=== PATIENT | female | born 1995 | race Caucasian/White ===

== ENCOUNTER 2020-07-29 18:09 | Observation (INO) ==
[2020-07-29] MEDS ORDERED: ONDANSETRON INJ 2 MG/ML 2 ML VIAL IV STA (19:52)
[2020-07-29] MEDS ORDERED: MoRPHine SULFATE 4 MG/ML 1 ML CARP\\VIAL IV STA (19:52)
[2020-07-29] MEDS ORDERED: PANTOprazole 40 MG in SYRINGE 0 ML IV ONE (19:52)
[2020-07-29] MEDS ORDERED: SODIUM CHLORIDE 0.9% 1000ML 1,000 ML IV SCH (20:00)
[2020-07-29 20:24] LABS: Basophils # (auto) 0.01 K/uL (0-0.2); Basophils % (auto) 0.1 %; Eosinophils # (auto) 0.06 K/uL (0-0.5); Eosinophils % (auto) 0.5 %; Hematocrit (blood only) 40.6 % (37-47); Hemoglobin 13.4 g/dL (12.0-16.0); Immature Granulocytes # (auto) 0.05 K/uL (0.00-0.02); Immature Granulocytes % (auto) 0.4 %; Lymphocytes # (auto) 3.19 K/uL (1.2-3.4); Mean Corpuscular Hemoglobin 27.7 pg (25-34); Mean Corpuscular Volume 84.1 fL (80-100); Mean Platelet Volume 10.5 fL (7.4-10.4); Monocytes # (auto) 0.84 K/uL (0.11-0.59); Monocytes % (auto) 6.8 %; Neutrophils # (auto) 8.12 K/uL (1.4-6.5); Neutrophils % (auto) 66.2 %; Platelet Count 318 K/uL (130-400); RDW Coefficient of Variation 13.2 % (11.5-14.5); RDW Standard Deviation 40.2 fL (36.4-46.3); Red Blood Count 4.83 M/uL (4.2-5.4); White Blood Count 12.27 K/uL (4.8-10.8)
[2020-07-29 20:40] LABS: Alanine Aminotransferase 28 U/L (12-78); Albumin Level 3.8 gm/dl (3.4-5.0); Aspartate Aminotransferase 16 U/L (15-37); BUN Creatinine Ratio 11.6 (10-20); Blood Urea Nitrogen 9 mg/dl (7-18); Calcium 9.8 mg/dl (8.5-10.1); Carbon Dioxide 26 mmol/L (21-32); Chloride 107 mmol/L (98-107); Creatinine Clr Calc Pharmacy 141.8 ml/min; Est GFR (African American) 121.3; Est GFR (Non-African American) 104.7; Glucose 87 mg/dl (70-99); Lipase 99 U/L (73-393); Potassium 3.6 mmol/L (3.5-5.1); Sodium 138 mmol/L (136-145)
--- NOTE | 2020-07-29 20:40 | CT Scan Report ---
CT OF THE ABDOMEN AND PELVIS WITHOUT CONTRAST CLINICAL HISTORY: epigastric pain after eating COMPARISON STUDY: No previous studies for comparison. TECHNIQUE: Axial images of the abdomen and pelvis were obtained without IV contrast. Images were revi ewed in the axial, sagittal, and coronal planes. Automated exposure control was utilized for the addi dy. A dose lowering technique was utilized adhering to the principles of ALARA. FINDINGS: Lung bases are unremarkable. Evaluation of the abdomen and pelvis is suboptimal on this une nhanced examination. There is a 7 mm calcified gallstone within the gallbladder. This exam is comprom ised by motion artifact. There is indistinctness of the gallbladder wall. This favors mild pericholec ystic infiltration. There may be mild gallbladder wall thickening. No biliary or pancreatic ductal di latation is present. Mild splenomegaly is noted. The liver, adrenal glands, kidneys and pancreas are normal. There is no peripancreatic infiltration. There is no hydronephrosis. No urinary calculi are i dentified. There is no evidence for a bowel obstruction. The appendix is normal. Trace fluid within t he pelvis is probably physiologic. The ovaries are not enlarged. There is no lymphadenopathy. There a re no suspicious osseous lesions. No pneumatosis, free air or portal venous gas is present. IMPRESSION: 1. Cholelithiasis with mild pericholecystic infiltration and possible gallbladder wall thickening. Th shukri findings raise the possibility of acute cholecystitis. A hepatobiliary scan could be obtained as indicated. 2. No urinary calculi or hydronephrosis. 3. No bowel obstruction. Normal appendix. 4. Trace fluid within the pelvis which is likely physiologic. ACT 112: Negative or not required by law. Electronically signed by: Jj Iglesias M.D. 07/29/2020 8:38 PM
[2020-07-29 20:45] LABS: Albumin Globulin Ratio 0.9 (0.9-2); Alkaline Phosphatase 87 U/L (45-117); Bilirubin,Total 0.6 mg/dl (0.2-1); Globulin 4.4 gm/dl (2.5-4.0); Total Protein 8.2 gm/dl (6.4-8.2); Troponin I < 0.015 ng/ml (0-0.045)
--- NOTE | 2020-07-29 20:52 | Ultrasound Report ---
US gallbladder CLINICAL HISTORY: Epigastric pain after eating COMPARISON STUDY: CT of the abdomen and pelvis July 29, 2020 at 8:27 PM. FINDINGS: Liver is sonographically normal. There is no biliary ductal dilatation. Common bile duct me asures 4 mm in caliber. Multiple gallstones are noted within the gallbladder, including an immobile 2 cm stone. The gallbladder wall is thickened, measuring 6 mm in thickness. No sonographic Urrutia sign was reported. Pancreas is obscured by overlying bowel gas. There is no right hydronephrosis. IMPRESSION: 1. Cholelithiasis and gallbladder wall thickening. No sonographic Urrutia sign. Acute cholecystitis ca nnot be excluded. A hepatobiliary scan could be obtained as indicated. 2. No biliary ductal dilatation. ACT 112: Negative or not required by law. Electronically signed by: Jj Iglesias M.D. 07/29/2020 8:51 PM
--- NOTE | 2020-07-29 21:42 | Emergency Department Note ---
History of Present Illness General Chief complaint: Abdominal Pain Stated complaint: PAIN IN ABD VOMITING Time Seen by Provider: 07/29/20 19:33 History of Present Illness Maximum Pain Intensity: 3 This is a 24-year-old female presenting to the emergency department for evaluation of epigastric abdominal pain for the past 9 or 10 hours. The patient states that she has had intermittent epigastric pain after eating for several months. She states that she last ate around 11 AM today, and shortly thereafter began having significant and persistent epigastric abdominal pain. She states i n the past she has vomited and this has relieved her symptoms. This did not help her today. The patient has not had fevers or chills. No distinct chest pain, chest tightness, shortness of breath, or lower abdominal pain. She denies chance of . She does not have a history of abdominal surgery. She will occasionally take Tylenol and Nexium as needed, but does not take any regular prescription medication. She rates her current pain a 3/10 with waves of pain that are much more severe. Home Medications Home Medications Medication Instructions Recorded Confirmed Type acetaminophen [Tylenol Extra 1,000 mg PO DIRECTED PRN 07/29/20 07/29/20 History Strength] esomeprazole magnesium [Nexium] 40 mg PO DAILY PRN 07/29/20 07/29/20 History Allergies Allergy/AdvReac Type Severity Reaction Status Date / Time No Known Allergies Allergy Verified 07/29/20 20:08 Past Med/Surg History Medical History No chronic diseases present Surgical History No significant past surgical history Social History Smoking Status: Never smoker Feels Safe at Home: Yes Review of Systems A total of 10 systems reviewed and were otherwise negative Physical Exam Vital Signs Vital Signs - 24 hr 07/29/20 18:09 07/29/20 20:00 07/29/20 21:22 Temperature 36.6 C Temperature Source Oral Pulse Rate 94 H Pulse Rate [Apical] 105 H 104 H Respiratory Rate 19 18 18 Respiratory Effort / Characteristics Non-Labored Spontaneous Respiratory Depth Normal Respiratory Pattern Regular Blood Pressure 138/93 Blood Pressure [Right Arm] 137/90 128/85 Blood Pressure Mean 108 Blood Pressure Mean [Right Arm] 105 99 Pulse Oximetry 99 98 98 Oxygen Delivery Method Room Air Room Air Room Air Sepsis Recent Fever Within 48 Hours No Sepsis New/Unexplained Change in Mental Status No Sepsis Action Taken by Nursing No Action Required VITALS: Vitals are noted on the nurse's note and reviewed by myself. Vital si gns stable. GENERAL: Well-developed, well-nourished, white female, who is in no acute distress and resting comfortably. Patient is cooperative with the examination. HEAD: Normocephalic atraumatic. NECK: Supple without nuchal rigidity. No lymphadenopathy. No thyromegaly. Cervical spine is nontender. HEART: Regular rate and rhythm without murmurs gallops or rubs. LUNGS: Clear to auscultation bilaterally without wheezes, rales or rhonchi. No retractions or accessory muscle use. ABDOMEN: Positive normal bowel sounds x 4. Soft with positive epigastric and slightly left upper quadrant tenderness on palpation. No rebound or guarding. No lower abdominal tenderness. No CVA tenderness. There is minimal right upper quadrant tenderness on palpation. MUSCULOSKELETAL: No muscle atrophy, erythema, or edema noted. Full range of motion in all extremities. NEURO: Patient was alert and oriented to person place and time. CN II through XII grossly intact. Course Administered Medications Piperacillin Sod/Tazobactam (Sod 3.375 gm/ Dextrose) 115 mls @ 28.75 mls/hr IV Q8H [facility]; Protocol Stop: 08/08/20 22:14 Last Admin: 07/29/20 22:25 Dose: 28.8 mls/hr Documented by: [id number] Discontinued Medications Sodium Chloride (Nss 1000ml) 1,000 mls @ 999 mls/hr IV .Q1H1M CELY Stop: 07/29/20 21:00 Last Infusion: 07/29/20 21:27 Dose: 0 mls/hr Documented by: [id number] Admin: 07/29/20 20:17 Dose: 999 mls/hr Documented by: [id number] Pantoprazole Sodium 40 mg/ (Syringe) 10 mls @ 5 mls/min IV NOW ONE Stop: 07/29/20 19:53 Last Admin: 07/29/20 20:17 Dose: 5 mls/min Documented by: [id number] Morphine Sulfate (Morphine Sulfate 4 Mg/Ml 1 Ml Carp\Vial) 4 mg IV NOW STA Stop: 07/29/20 19:53 Last Admin: 07/29/20 20:17 Dose: 4 mg Documented by: [id number] Ondansetron HCl (Ondansetron Inj 2 Mg/Ml 2 Ml Vial) 4 mg IV NOW STA Stop: 07/29/20 19:53 Last Admin: 07/29/20 20:17 Dose: 4 mg Documented by: [id number] Medical Decision Making Differential Diagnosis Differential diagnosis: Etiologies such as biliary colic, cholecystitis, hepatitis, pancreatitis, cardiac disease, pancreatitis, gastritis, peptic ulcer disease, appendicitis, cystitis, diverticulitis, mesenteric ischemia, inflammatory bowel disease, ileus, bowel obstruction, testicular/adnexal torsion, aortic pathology, shingles, as well as others were considered Laboratory Data Result diagrams: 07/29/20 20:10 07/29/20 20:10 Lab Results 07/29/20 07/29/20 07/29/20 Range/Units 20:10 20:10 20:10 WBC 12.27 H (4.8-10.8) K/uL RBC 4.83 (4.2-5.4) M/uL Hgb 13.4 (12.0-16.0) g/dL Hct 40.6 (37-47) % MCV 84.1 (80-100) fL MCH 27.7 (25-34) pg MCHC 33.0 (32-36) g/dL RDW Std Deviation 40.2 (36.4-46.3) fL RDW Coeff of Mu 13.2 (11.5-14.5) % Plt Count 318 (130-400) K/uL MPV 10.5 H (7.4-10.4) fL Immature Gran % (Auto) 0.4 % Neut % (Auto) 66.2 % Lymph % (Auto) 26.0 % [place] % (Auto) 6.8 % Eos % (Auto) 0.5 % Baso % (Auto) 0.1 % Neut # (Auto) 8.12 H (1.4-6.5) K/uL Lymph # (Auto) 3.19 (1.2-3.4) K/uL [place] # (Auto) 0.84 H (0.11-0.59) K/uL Eos # (Auto) 0.06 (0-0.5) K/uL Baso # (Auto) 0.01 (0-0.2) K/uL Immature Gran # (Auto) 0.05 H (0.00-0.02) K/uL Sodium 138 (136-145) mmol/L Potassium 3.6 (3.5-5.1) mmol/L Chloride 107 (98-107) mmol/L Carbon Dioxide 26 (21-32) mmol/L Anion Gap 5.0 (3-11) BUN 9 (7-18) mg/dl Creatinine 0.80 (0.6-1.2) mg/dl Est Cr Clr Drug Dosing 141.8 ml/min Est GFR ( Amer) 121.3 Est GFR (Non-Af Amer) 104.7 BUN/Creatinine Ratio 11.6 (10-20) Glucose 87 (70-99) mg/dl Calcium 9.8 (8.5-10.1) mg/dl Total Bilirubin 0.6 (0.2-1) mg/dl AST 16 (15-37) U/L ALT 28 (12-78) U/L Alkaline Phosphatase 87 (45-117) U/L Troponin I < 0.015 (0-0.045) ng/ml Total Protein 8.2 (6.4-8.2) gm/dl Albumin 3.8 (3.4-5.0) gm/dl Globulin 4.4 H (2.5-4.0) gm/dl Albumin/Globulin Ratio 0.9 (0.9-2) Lipase 99 (73-393) U/L Urine Color Urine Appearance (Clear) Urine pH (4.5-7.5) Ur Specific [place] (1.000-1.030) Urine Protein (Negative) Urine Glucose (UA) (Negative) Urine Ketones (Negative) Urine Blood (Negative) Urine Nitrite (Negative) Urine Bilirubin (Negative) Urine Urobilinogen (Negative) Ur Leukocyte Esterase (Negative) Urine WBC (Auto) (0-5) /hpf Urine RBC (Auto) (0-4) /hpf U Hyaline Cast (Auto) (0-5) /lpf U Epithel Cells (Auto) (0-5) /lpf Urine Bacteria (Auto) (Negative) POC Ur Test (NEG) Monoscreen Negative (Negative) 10/08/20 10/08/20 Range/Units 21:12 21:12 WBC (4.8-10.8) K/uL RBC (4.2-5.4) M/uL Hgb (12.0-16.0) g/dL Hct (37-47) % MCV (80-100) fL MCH (25-34) pg MCHC (32-36) g/dL RDW Std Deviation (36.4-46.3) fL RDW Coeff of Mu (11.5-14.5) % Plt Count (130-400) K/uL MPV (7.4-10.4) fL Immature Gran % (Auto) % Neut % (Auto) % Lymph % (Auto) % [place] % (Auto) % Eos % (Auto) % Baso % (Auto) % Neut # (Auto) (1.4-6.5) K/uL Lymph # (Auto) (1.2-3.4) K/uL [place] # (Auto) (0.11-0.59) K/uL Eos # (Auto) (0-0.5) K/uL Baso # (Auto) (0-0.2) K/uL Immature Gran # (Auto) (0.00-0.02) K/uL Sodium (136-145) mmol/L Potassium (3.5-5.1) mmol/L Chloride (98-107) mmol/L Carbon Dioxide (21-32) mmol/L Anion Gap (3-11) BUN (7-18) mg/dl Creatinine (0.6-1.2) mg/dl Est Cr Clr Drug Dosing ml/min Est GFR ( Amer) Est GFR (Non-Af Amer) BUN/Creatinine Ratio (10-20) Glucose (70-99) mg/dl Calcium (8.5-10.1) mg/dl Total Bilirubin (0.2-1) mg/dl AST (15-37) U/L ALT (12-78) U/L Alkaline Phosphatase (45-117) U/L Troponin I (0-0.045) ng/ml Total Protein (6.4-8.2) gm/dl Albumin (3.4-5.0) gm/dl Globulin (2.5-4.0) gm/dl Albumin/Globulin Ratio (0.9-2) Lipase (73-393) U/L Urine Color Yellow Urine Appearance Cloudy A (Clear) Urine pH 5.5 (4.5-7.5) Ur Specific [place] 1.007 (1.000-1.030) Urine Protein Negative (Negative) Urine Glucose (UA) Negative (Negative) Urine Ketones 1+ H (Negative) Urine Blood Negative (Negative) Urine Nitrite Negative (Negative) Urine Bilirubin Negative (Negative) Urine Urobilinogen Negative (Negative) Ur Leukocyte Esterase Trace H (Negative) Urine WBC (Auto) 5-10 H (0-5) /hpf Urine RBC (Auto) 0-4 (0-4) /hpf U Hyaline Cast (Auto) 1-5 (0-5) /lpf U Epithel Cells (Auto) >30 H (0-5) /lpf Urine Bacteria (Auto) 2+ H (Negative) POC Ur Test NEG (NEG) Monoscreen (Negative) Imaging Data Radiologist's Impression: CT OF THE ABDOMEN AND PELVIS WITHOUT CONTRAST CLINICAL HISTORY: epigastric pain after eating COMPARISON STUDY: No previous studies for comparison. TECHNIQUE: Axial images of the abdomen and pelvis were obtained without IV contrast. Images were reviewed in the axial, sagittal, and coronal planes. Automated exposure control was utilized for the study. A dose lowering technique was utilized adhering to the principles of ALARA. FINDINGS: Lung bases are unremarkable. Evaluation of the abdomen and pelvis is suboptimal on this unenhanced examination. There is a 7 mm calcified gallstone within the gallbladder. This exam is compromised by motion artifact. There is indistinctness of the gallbladder wall. This favors mild pericholecystic infiltration. There may be mild gallbladder wall thickening. No biliary or pancreatic ductal dilatation is present. Mild splenomegaly is noted. The liver, adrenal glands, kidneys and pancreas are normal. There is no peripancreatic infiltration. There is no hydronephrosis. No urinary calculi are identified. There is no evidence for a bowel obstruction. The appendix is normal. Trace fluid within the pelvis is probably physiologic. The ovaries are not enlarged. There is no lymphadenopathy. There are no suspicious osseous lesions. No pneumatosis, free air or portal venous gas is present. IMPRESSION: 1. Cholelithiasis with mild pericholecystic infiltration and possible gallbladder wall thickening. These findings raise the possibility of acute cholecystitis. A hepatobiliary scan could be obtained as indicated. 2. No urinary calculi or hydronephrosis. 3. No bowel obstruction. Normal appendix. 4. Trace fluid within the pelvis which is likely physiologic. US gallbladder CLINICAL HISTORY: Epigastric pain after eating COMPARISON STUDY: CT of the abdomen and pelvis July 29, 2020 at 8:27 PM. FINDINGS: Liver is sonographically normal. There is no biliary ductal dilatation. Common bile duct measures 4 mm in caliber. Multiple gallstones are noted within the gallbladder, including an immobile 2 cm stone. The gallbladder wall is thickened, measuring 6 mm in thickness. No sonographic Urrutia sign was reported. Pancreas is obscured by overlying bowel gas. There is no right hydronephrosis. IMPRESSION: 1. Cholelithiasis and gallbladder wall thickening. No sonographic Urrutia sign. Acute cholecystitis cannot be excluded. A hepatobiliary scan could be obtained as indicated. 2. No biliary ductal dilatation. ECG Data Attestation: I personally reviewed and interpreted this ECG as follows: Indication: abdominal pain Additional Comments: Normal sinus rhythm @99bpm No acute ST elevation or ectopy Normal ECG No previous ECGs available MDM Narrative Physical exam and history were performed. Nursing notes, EMR, and Medication List were personally reviewed. Patient appears to have epigastric abdominal pain after eating. She has had symptoms like this off and on for some time, but is much worse today when compared to normal. IV access was established and labs were obtained. The patient was given IV morphine, IV Zofran, and IV Protonix. She was hydrated with IV saline. An order was placed for continuous cardiac monitoring. The monitor shows a rate of 68 with normal sinus rhythm. The patient's blood work is as above and was reviewed. She does have a slightly elevated white blood cell count of 12,000. She does not have a significant anemia, bandemia, or gross electrolyte imbalance. Troponin x1 is negative. Lipase and transaminases are not diagnostic. Urine is negative for . Right upper quadrant ultrasound as well as noncontrast CT scan of the abdomen and pelvis were performed and reviewed by myself and radiology. Both studies are highly suggestive of acute cholecystitis, which clinically would correlate with her symptoms. The case was discussed with the on-call surgical team, Jignesh Lopez PA-C, who did evaluate the patient here in the ER. Please see Mr. Lopez's dictation for further patient course, plan, and disposition. The chart was completed utilizing [employer] Speech Voice Recognition Software. Grammatical errors, random word insertions, pronoun errors, and incomplete sentences are an occasional consequence of this system due to software limitations, ambient noise, and hardware issues. Any formal questions or concerns about the content, text, or information contained within the body of this dictation should be directly addressed to the provider for clarification. . Impression & Plan Acute cholecystitis, Epigastric abdominal pain Discharge Plan Visit Data Chief Complaint: Abdominal Pain Stated Complaint: PAIN IN ABD VOMITING ED Provider: Andres Gutiérrez ED Midlevel Provider: Adam Martinez Discharge Problem: Acute cholecystitis, Epigastric abdominal pain Forms Stand Alone Forms: [employer] Prescriptions Prescriptions: No Action acetaminophen [Tylenol Extra Strength] 500 mg Tablet 1,000 mg PO DIRECTED PRN (Reason: Pain) RF: 0 esomeprazole magnesium [Nexium] 20 mg Capsule,Delayed Release(Dr/Ec) 40 mg PO DAILY PRN (Reason: HEARTBURN/INDIGESTION) RF: 0 Referrals Referrals: PCP,NO [Primary Care Provider] -
[2020-07-29 21:44] LABS: Appearance Urine Cloudy (Clear); Bacteria Urine Automated 2+ (Negative); Bilirubin Urine Negative (Negative); Blood Urine Negative (Negative); Color Urine Yellow; Epithelial Cell Urine Auto >30 /lpf (0-5); Glucose Urine UA Negative (Negative); Ketones Urine 1+ (Negative); Leukocyte Esterase Urine Trace (Negative); Nitrite Urine Negative (Negative); Protein Urine Negative (Negative); Specific Gravity Urine 1.007 (1.000-1.030); Urobilinogen Urine Negative (Negative); pH Urine 5.5 (4.5-7.5)
[2020-07-29 22:10] LABS: RBC Urine Automated 0-4 /hpf (0-4)
--- NOTE | 2020-07-29 22:18 | History & Physical Report ---
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 The pain was initially occurring 20-30 minutes after eating, but over the past 24 hours has been noted immediately after eating. No palliative factors other than abstaining from oral intake. Pain is provoked by eating as noted. She has had N/V, but no fevers. No change in bowel habits. No fevers, shakes, chills. No radiation of pain. In the ED, she was afebrile with stable vitals. WBC was elevated at 12K. LFTs, lipase, and electrolytes were unremarkable. CT scan of abdomen and GB US showed gallstones with GB wall thickening, concerning for cholecystitis. At the time of my exam she was in no distress. Allergies Allergy/AdvReac Type Severity Reaction Status Date / Time No Known Allergies Allergy Verified 07/29/20 20:08 Home Medications Home Medications Medication Instructions Recorded Confirmed Type acetaminophen [Tylenol Extra 1,000 mg PO DIRECTED PRN 07/29/20 07/29/20 History Strength] esomeprazole magnesium [Nexium] 40 mg PO DAILY PRN 07/29/20 07/29/20 History Past Med/Surg History Medical History No chronic diseases present Surgical History No significant past surgical history Social History Smoking Status: Never smoker Second Hand Exposure: No; Do You Dip or Chew Tobacco: No; Tobacco Cessation Education Requested by Patient: No Hx Alcohol Use: Yes Alcohol type: wine Hx Substance Use: No Preferred Language: Thai Beliefs That Will Affect Care: None Current Living Situation: Other Current Living Situation Comment: 1 roommate Other Information That Helps Us Care for You: No Feels Safe at Home: Yes Safety Concerns: Feels Safe At This Time Assistive Devices: None Review of Systems Constitutional: no sweats Eyes: no diplopia Ear, Nose, Mouth, Throat: no ear pain Respiratory: no cough and no dyspnea Cardiovascular: no chest pain Gastrointestinal: + abdominal pain, + nausea and + vomiting; no coffee ground emesis, no change in bowel habits and no diarrhea/loose stools Genitourinary: no dysuria Musculoskeletal: no back pain Integumentary: no rash Neurologic: no localized weakness Physical Exam Constitutional: well developed, well nourished and + obese; no acute distress Eyes: + anicteric sclerae; no conjunctival abnormality ENMT: Ears: no hearing impairment no sublingual jaundice Neck: trachea midline Respiratory: normal respiratory effort, lungs clear to auscultation Cardiovascular: Rate/Rhythm: regular rate and regular rhythm Vessels: posterior tibial pulses present Gastrointestinal (Abdomen): soft and nondistended, BS are present, no rebound tenderness or guarding. Pain with palpation, greatest in the RUQ. Urrutia's sign (+) Musculoskeletal: no calf pain Skin: no rashes, warm and dry no jaundice Neurologic: moves all extremities Psychiatric: A+Ox3, euthymic affect Results & Data Results & Data ([facility]) Vital Signs (Past 12 Hours) Vital Signs Temp Pulse Pulse Resp BP BP Pulse Ox 07/29/20 21:22 104 H 18 128/85 98 07/29/20 20:00 105 H 18 137/90 98 07/29/20 18:09 36.6 C 94 H 19 138/93 99 Code Status & VTE Plan VTE Prophylaxis Plan VTE Prophylaxis will be ordered: Yes Supervising Physician Co-Signing Physician Notes I personally saw and evaluated the patient and agree with Yemi Lopez PA-C assessment and plan 24 yo female with acute cholecystitis -US images and results reviewed, consistent with cholecystitis -TO OR for laparoscopic cholecystectomy, possible open, possible IOC -Consent obtained, risks discussed including bleeding, infection, bile leak, ductal injury -NPO, ABX PG Care Time/CCT Total # of Minutes Spent Total Time Spent with Patient: Total time spent is greater than 50% in coordination of care (as documented) at patient's floor/unit and/or counseling patient: Coding Level of Care Code 97254 Initial Inpt Care Lvl 3 Diagnoses Cholecystitis K81.9
[2020-07-29] MEDS: PIPERACILLIN/TAZOBACTAM 3.375 GM in DEXTROSE 5% 100 ML IV SCH (22:25)
[2020-07-30] MEDS ORDERED: ONDANSETRON INJ 2 MG/ML 2 ML VIAL IV PRN ×2 (00:01→11:42)
[2020-07-30] MEDS ORDERED: PIPERACILL/TAZOBAC CONSULT ACTIVE PRN (00:01)
[2020-07-30] MEDS: MoRPHine SULFATE 2 MG/ML CARP IV PRN ×3 (00:36→07:12)
[2020-07-30] MEDS: SODIUM CHLORIDE 0.9% 1000ML 1,000 ML IV SCH ×2 (00:37→12:48)
[2020-07-30 06:12] LABS: Basophils # (auto) 0.01 K/uL (0-0.2); Basophils % (auto) 0.1 %; Eosinophils # (auto) 0.05 K/uL (0-0.5); Eosinophils % (auto) 0.6 %; Hematocrit (blood only) 37.6 % (37-47); Hemoglobin 12.5 g/dL (12.0-16.0); Immature Granulocytes # (auto) 0.01 K/uL (0.00-0.02); Immature Granulocytes % (auto) 0.1 %; Lymphocytes % (auto) 22.4 %; Mean Corpuscular Hemoglobin 27.5 pg (25-34); Mean Corpuscular Volume 82.8 fL (80-100); Mean Platelet Volume 10.3 fL (7.4-10.4); Monocytes # (auto) 0.72 K/uL (0.11-0.59); Monocytes % (auto) 8.5 %; Neutrophils # (auto) 5.81 K/uL (1.4-6.5); Neutrophils % (auto) 68.3 %; Platelet Count 258 K/uL (130-400); RDW Coefficient of Variation 13.2 % (11.5-14.5); RDW Standard Deviation 39.9 fL (36.4-46.3); Red Blood Count 4.54 M/uL (4.2-5.4)
[2020-07-30] MEDS: PIPERACILLIN/TAZOBACTAM 3.375 GM in DEXTROSE 5% 100 ML IV SCH (06:22)
[2020-07-30 06:29] LABS: Albumin Level 3.1 gm/dl (3.4-5.0); BUN Creatinine Ratio 9.2 (10-20); Calcium 8.6 mg/dl (8.5-10.1); Creatinine Clr Calc Pharmacy 168.9 ml/min; Est GFR (African American) 144.6; Est GFR (Non-African American) 124.8; Potassium 3.7 mmol/L (3.5-5.1)
[2020-07-30 06:32] LABS: Albumin Globulin Ratio 0.8 (0.9-2); Bilirubin,Total 0.7 mg/dl (0.2-1); Globulin 3.8 gm/dl (2.5-4.0); Total Protein 6.9 gm/dl (6.4-8.2)
[2020-07-30 06:43] LABS: Mean Corpuscular Hgb Conc 33.2 g/dL (32-36)
--- NOTE | 2020-07-30 07:27 | Anesthesiology Consultation ---
Date of Service July 30, 2020 Assessment & Plan (1) Encounter for pre-operative examination: Chart Review Chart Review: Acceptable Risk for Surgery History Surgery Operation Date: 07/30/20 10:40 Proposed Procedures p Laparoscopic Cholecystectomy, Possible Open - Navarro Craven DO Height/Weight Height: 5 ft 3 in Weight: 124.5 kg Allergies Allergy/AdvReac Type Severity Reaction Status Date / Time No Known Allergies Allergy Verified 07/29/20 20:08 Medications Home Medications Medication Instructions Recorded Confirmed Last Taken acetaminophen [Tylenol Extra 1,000 mg PO DIRECTED PRN 07/29/20 07/29/20 07/29/20 14:00 Strength] esomeprazole magnesium [Nexium] 40 mg PO DAILY PRN 07/29/20 07/29/20 07/29/20 Active Medications Generic Name Dose Route Start Last Admin Trade Name Freq PRN Reason Stop Dose Admin Piperacillin Sod/Tazobactam 115 mls @ 28.75 mls/hr 07/29/20 22:15 07/30/20 06:22 Sod 3.375 gm/ Dextrose IV 08/08/20 22:14 28.8 mls/hr Q8H CELY Administration Protocol Sodium Chloride 1,000 mls @ 100 mls/hr 07/30/20 00:01 07/30/20 00:37 Nss 1000ml IV 08/29/20 00:00 100 mls/hr .Q10H CELY Administration Morphine Sulfate 2 mg 07/30/20 00:01 07/30/20 07:12 Morphine Sulfate 2 Mg/Ml Carp IV 08/13/20 00:00 2 mg Q3H PRN Administration Pain NPO Date Last Intake of Fluids: 07/29/20 Date Last Intake of Solids: 07/29/20 Past Medical History Medical History No chronic diseases present Past Surgical History Surgical History No significant past surgical history Social History Smoking Status: Never smoker Do You Dip or Chew Tobacco: No Hx Alcohol Use: Yes Alcohol type: wine alcohol intake frequency: a few times a month Hx Substance Use: No Physical Exam Vital Signs Last Vital Signs Temp 97.5 F L 07/30/20 00:13 Pulse 93 H 07/30/20 00:13 Resp 18 07/30/20 00:13 BP 133/85 07/30/20 00:13 Pulse Ox 98 07/30/20 00:13 Testing Laboratory Results 07/30/20 05:56 07/30/20 05:56 Urine Color Yellow 07/29/20 21:12 Urine Appearance Cloudy (Clear) A 07/29/20 21:12 Urine pH 5.5 (4.5-7.5) 07/29/20 21:12 Ur Specific [place] 1.007 (1.000-1.030) 07/29/20 21:12 Urine Protein Negative (Negative) 07/29/20 21:12 Urine Glucose (UA) Negative (Negative) 07/29/20 21:12 Urine Ketones 1+ (Negative) H 07/29/20 21:12 Urine Nitrite Negative (Negative) 07/29/20 21:12 Ur Leukocyte Esterase Trace (Negative) H 07/29/20 21:12 Urine WBC (Auto) 5-10 /hpf (0-5) H 07/29/20 21:12 Urine RBC (Auto) 0-4 /hpf (0-4) 07/29/20 21:12 U Hyaline Cast (Auto) 1-5 /lpf (0-5) 07/29/20 21:12 U Epithel Cells (Auto) >30 /lpf (0-5) H 07/29/20 21:12 Urine Bacteria (Auto) 2+ (Negative) H 07/29/20 21:12 07/29/20 21:12 POC Ur Test NEG Electrocardiogram Date: 07/29/20 Findings: + NSR @ (99 bpm)
--- NOTE | 2020-07-30 08:21 | XRay Report ---
XR chest 1V portable CLINICAL HISTORY: Preoperative chest COMPARISON STUDY: No previous studies for comparison. FINDINGS: The cardiac and mediastinal contours are normal. There is no evidence of focal pulmonary co nsolidation. There is no evidence of failure. No pleural effusions are visualized.[ IMPRESSION: No active disease in the chest. ACT 112: Negative or not required by law. Electronically signed by: Andre Womack M.D. 07/30/2020 8:20 AM
[2020-07-30] MEDS ORDERED: PROPOFOL IV EMULSION 10 MG/ML 20 ML VIAL IV ONE ×3 (08:40→11:08)
[2020-07-30] MEDS ORDERED: ONDANSETRON INJ 2 MG/ML 2 ML VIAL ONE ×2 (08:40→11:31)
[2020-07-30] MEDS ORDERED: DEXAMETHASONE SOD INJ 4 MG/ML VIAL ONE (08:40)
[2020-07-30] MEDS ORDERED: ROCURONIUM BROMIDE 10 MG/ML 5 ML VIAL IV ONE (08:40)
[2020-07-30] MEDS ORDERED: LIDOCAINE 2% 2 ML VIAL/AMP(20MG/ML) INFIL ONE ×2 (08:40→09:03)
[2020-07-30] MEDS ORDERED: MIDAZOLAM HCL 1 MG/ML 2ML VIAL ONE ×2 (08:41→09:03)
[2020-07-30] MEDS ORDERED: fentaNYL citrate 100 MCG/2 ML VIAL ONE ×3 (08:41→10:00)
[2020-07-30] MEDS ORDERED: BUPIVACAINE/EPINEPHRINE 0.25% 1:200,000 30 ML VIAL ONE (08:49)
--- NOTE | 2020-07-30 09:27 | History & Physical Bridge Note ---
Date of Service July 30, 2020 History & Physical Bridge Note I have examined the patient, reviewed the History & Physical and in the interval since the performance of the History & Physical I have noted the following changes of clinical significance: no changes noted
[2020-07-30] MEDS ORDERED: ACETAMINOPHEN 1000 MG/100 ML IV IV ONE (09:48)
[2020-07-30] MEDS ORDERED: NEOSTIGMINE METHYLSULFATE 5 MG/5 ML SYR ONE (10:49)
[2020-07-30] MEDS ORDERED: GLYCOPYRROLATE 0.2 MG/ML VIAL ONE (10:49)
[2020-07-30] MEDS ORDERED: HYDROmorphone INJ 2 MG/ML SYR/VIAL ONE (10:54)
--- NOTE | 2020-07-30 11:18 | Post Operative Brief Note ---
PG Immediate Post Op with CF Date of Surgery July 30, 2020 Pre & Post Diagnosis Operation Date: 07/30/20 10:40 Pre-Op Diagnosis: ACUTE CHOLECYSTITIS Post-Op Diagnosis: ACUTE CHOLECYSTITIS I identified the patient and participated in the time-out.: Yes Procedure Operation Date: 07/30/20 10:40 Actual Procedures p Laparoscopic Cholecystectomy(Not Applicable) - Navarro Craven DO Surgeon Navarro Craven DO [employer] C[employer] Spinner Conor Starr PA-C Estimated Blood Loss 5 Findings See Below Acutely inflamed, distended GB with thickened GB wall Fluids 1000mL Specimens Specimen Description: Permanent Specimen: A) Gallbladder Anesthesia Type General Complications none Disposition Disposition: Recovery Room
[2020-07-30] MEDS ORDERED: PHENYLEPHRINE 100MCG/ML 5ML SYR IV PRN (11:42)
[2020-07-30] MEDS ORDERED: HYDROmorphone INJ 1 MG/ML SYRINGE IV PRN (11:42)
[2020-07-30] MEDS ORDERED: MEPERIDINE HCL 25 MG/ML CARP/VIAL IV PRN (11:42)
[2020-07-30] MEDS ORDERED: LABETALOL HCL IV 5 MG/ML 20ML IV PRN (11:42)
[2020-07-30] MEDS ORDERED: ePHEDrine sulfate 50 MG/ML AMP IV PRN (11:42)
[2020-07-30] MEDS ORDERED: ATROPINE SULFATE 0.1 MG/ML 10ML SYR IV PRN (11:42)
--- NOTE | 2020-07-30 11:48 | Electrocardiogram Report ---
Test Reason : Blood Pressure : / mmHG Vent. Rate : 099 BPM Atrial Rate : 099 BPM P-R Int : 116 ms QRS Dur : 078 ms QT Int : 338 ms P-R-T Axes : 039 071 065 degrees QTc Int : 433 ms Normal sinus rhythm Normal ECG No previous ECGs available Confirmed by Villa Zuniga ([id number]) on 07/30/2020 11:48:25 AM Referred By: REFERRED SELF Confirmed By:Carlos Alberto Zuniga
[2020-07-30] MEDS: fentaNYL citrate 100 MCG/2 ML VIAL IV PRN ×2 (11:54→11:59)
--- NOTE | 2020-07-30 12:18 | Anesthesiology Progress Note ---
Date of Service July 30, 2020 Anesthesia Post Procedure Vital Signs Vital Signs: Temp Pulse Pulse Pulse Resp BP BP 07/30/20 12:10 77 21 07/30/20 12:00 62 19 07/30/20 11:50 68 24 07/30/20 11:40 62 26 H 07/30/20 11:30 36.4 C L 92 H 22 07/30/20 09:12 37 C 106 H 18 07/30/20 00:13 36.4 C L 93 H 18 133/85 07/29/20 23:16 85 19 07/29/20 21:22 104 H 18 07/29/20 20:00 105 H 18 07/29/20 18:09 36.6 C 94 H 19 138/93 BP Pulse Ox 07/30/20 12:10 119/80 95 07/30/20 12:00 132/74 98 07/30/20 11:50 133/72 99 07/30/20 11:40 131/80 100 07/30/20 11:30 158/82 H 100 07/30/20 09:12 150/100 H 98 07/30/20 00:13 98 07/29/20 23:16 134/86 99 07/29/20 21:22 128/85 98 07/29/20 20:00 137/90 98 07/29/20 18:09 99 Pain Intensity Abdomen: Pain Intensity: 3 Transfer of Care Handoff Completed per policy Notes Mental Status: alert / awake / arousable Patient Amnestic to Procedure: Yes Nausea / Vomiting: adequately controlled Pain: adequately controlled Airway Patency, RR, SpO2: stable & adequate BP & HR: stable & adequate Hydration State: stable & adequate Anesthetic Complications: no major complications apparent and Pt Satisfied with anesthetic care
[2020-07-30] MEDS ORDERED: oxyCODONE/ACETAMINOPHEN 5mg/325mg TAB PO PRN (12:33)
[2020-07-30] MEDS ORDERED: MoRPHine SULFATE 2 MG/ML CARP IV PRN (12:33)
[2020-07-30] MEDS ORDERED: MoRPHine SULFATE 4 MG/ML 1 ML CARP\\VIAL IV PRN (12:33)
--- NOTE | 2020-07-30 13:45 | Operative Report ---
PG Post Operative Report Pre & Post Diagnosis Operation Date: 07/30/20 10:40 Pre-Op Diagnosis: ACUTE CHOLECYSTITIS Post-Op Diagnosis: ACUTE CHOLECYSTITIS I identified the patient and participated in the time-out.: Yes Procedure Operation Date: 07/30/20 10:40 Actual Procedures p Laparoscopic Cholecystectomy(Not Applicable) - Navarro Craven DO Surgeon Navarro Craven DO Senior Medical Billing Specialist Conor Starr PA-C Estimated Blood Loss 5 Findings See Below Acutely inflamed, edematous GB with wall thickening Fluids 1000mL Specimens Gallbladder to pathology Drains None Anesthesia Type General Complications none Disposition Disposition: Recovery Room Indications 24 yo female with clinical and sonographic signs of acute cholecystitis Description of Procedure The patient was brought to the operating room and placed in the supine position with both arms extended. At this time she underwent general endotracheal anesthesia without any problems. She was given appropriate pre-operative antibiotics. Her abdomen prepped and draped in the usual sterile fashion. A ti meout was called, the procedure was verified as Laparoscopic cholecystectomy, possible open, possible intra-operative cholangiogram. Surgical, nursing and anesthesia teams agreed and the procedure was begun. After injection of 0.25% Marcaine with epinephrine, a supraumbilical vertical incision was made and carried down to the fascia using S-retractors. The abdominal wall was then elevated with towel clamps and abdomen entered using the Veress needle confirming position using the saline drop test. Pneumoperitoneum was established. 5mm trocar was placed. Laparoscope was introduced. No injury from entry into the abdomen was visualized after inspection of the abdomen. Three further ports were placed under direct visualization. One 11mm in the subxiphoid region and two 5mm in the RUQ. At this time the abdomen was inspected and the gallbladder identified. The gallbladder itself was thickened, inflamed and edematous. The gallbladder was decompressed using a laparoscopic needle in order to better grasp it. The gallbladder fundus was grasped and retracted cephalad. The gallbladder infundibulum was then grasped and retracted laterally. The cystic duct and cystic artery were then identified and skeletonized. The critical view of safety was obtained. They were both then clipped twice proximally and once distally and then divided using scissors. The gallbladder was then taken off of the liver bed using electrocautery and placed in an endocatch bag and removed from the subxiphoid port. The liver bed was then inspected and no bile leak or bleeding was evident. The trocars were then removed under direct visualization and no bleeding was present. The subxiphoid port was then closed using 0-Vicryl using the suture passer. Abdomen was desufflated. The skin was then closed using 4-0 Monocryl in a subcuticular fashion. Surgical glue was applied. Needle and sponge counts were correct x 2. At this time the patient was awoken from anesthesia and extubated having r emained stable throughout the entire case. The patient was then transported to PACU in stable condition. I attest to the content of the Intraoperative Record and any orders documented therein. Any exceptions are noted below.
[2020-07-30] MEDS: oxyCODONE/ACETAMINOPHEN 5mg/325mg TAB PO PRN ×2 (16:17→17:50)
[2020-08-01] MEDS ORDERED: INFLUENZA ADMINISTRATION CHARGE ONE (09:00)
[2020-08-01] MEDS ORDERED: INFLUENZA VIRUS QUAD VACCINE 0.5 ML SYR IM ONE (09:00)
--- NOTE | 2020-08-03 10:35 | Discharge Summary ---
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 The pain was initially occurring 20-30 minutes after eating, but over the past 24 hours has been noted immediately after eating. No palliative factors other than abstaining from oral intake. Pain is provoked by eating as noted. She has had N/V, but no fevers. No change in bowel habits. No fevers, shakes, chills. No radiation of pain. In the ED, she was afebrile with stable vitals. WBC was elevated at 12K. LFTs, lipase, and electrolytes were unremarkable. CT scan of abdomen and GB US showed gallstones with GB wall thickening, concerning for cholecystitis. At the time of my exam she was in no distress. Admission Exam (Per Admitting) Constitutional WD/WN, vitals as above Eyes PERRL, conjunctivae normal, anicteric sclerae ENMT external ear and nose normal, oropharynx normal Neck trachea midline, no thyromegaly Respiratory normal respiratory effort, lungs clear to auscultation Gastrointestinal (Abdomen) Percussion/Palpation: + abdomen tender (appropriately ) and abdomen soft; no guarding and abdomen not rigid Dressings c/d/i Musculoskeletal no cyanosis or clubbing, extremities motor strength 5/5 Skin no rashes, warm and dry Discharge Data Consultations None Procedures Performed Operation Date: 07/30/20 10:40 Actual Procedures p Laparoscopic Cholecystectomy(Not Applicable) - Navarro Craven DO Hospital Course (1) Acute cholecystitis: Patient was admitted to surgical service, kept NPO and started on broad spectrum antibiotics. She was taken to the OR for laparoscopic cholecystectomy which she tolerated well. Post-operatively she was afebrile, tolerating a diet and her pain was controlled and she was stable for discharge. Discharge Instructions Remove dressing in 2 days, leave steri strips in place No lifting, pushing, pulling more than 10 lbs for 2 weeks Coding Level of Care Code Admit/DC Same Day >8hr Level 1 Diagnoses Acute cholecystitis K81.0
== END 2020-07-30 19:05 | disposition home or self-care (01) | DRG 419 ==
LOC: ED 18:09 → INTOOBSV 22:09 → 3E 22:09